=== PATIENT | male | born 1985 | race Caucasian/White ===

== ENCOUNTER → 2019-04-08 | Outpatient (REF) | payer BC ==
[2019-04-08 14:37] LABS: APPEARANCE, URINE CLEAR (CLEAR); BACTERIA, URINE AUTO NEGATIVE (NEGATIVE); BILIRUBIN, URINE AUTO NEGATIVE (NEGATIVE); BLOOD, URINE BLOOD NEGATIVE (NEGATIVE); COLOR, URINE YELLOW (YELLOW); GLUCOSE, URINE (UA) AUTO NEGATIVE (NEGATIVE); KETONE, URINE AUTO NEGATIVE (NEGATIVE); LEUKOCYTE ESTERASE, URINE AUTO NEGATIVE (NEGATIVE); MUCUS, URINE SMALL (NEGATIVE); NITRITE, URINE AUTO NEGATIVE (NEGATIVE); PROTEIN, URINE AUTO NEGATIVE (NEGATIVE); RBC, URINE AUTO 0 /HPF (0-3); SQUAMOUS EPITHELIAL CELL UR AU 0 /HPF (0-6); UROBILINOGEN, URINE AUTO 0.2 mg/dL (0.0-2.0); WBC, URINE AUTO 0 /HPF (0-3)
[2019-04-08 16:10] LABS: CHLAMYDIA DNA AMPLIFICATION NEGATIVE (NEGATIVE); GC DNA AMPLIFICATION NEGATIVE (NEGATIVE)
== END ==
LOC: M LAB REF 12:36
PROVIDERS: ATTEND Physician Assistant Medical
DX: N50.819 Testicular pain, unspecified (principal)

== ENCOUNTER → 2019-04-08 | Outpatient (CLI) | payer BC ==
--- NOTE | 2019-04-08 13:17 | REP ---
Scrotal sonography: History: Right-sided testicular pain. No trauma. Findings: High-resolution bilateral scrotal sonography shows no evidence of intratesticular mass lesion on either side. Testicular Doppler flow is normal bilaterally. Resistive indices are 0.50 on the right and 0.56 on the left. There is a small right-sided hydrocele. There is a left-sided varicocele. Epididymal structures are unremarkable and symmetric. Impression: Small left-sided varicocele. Small right-sided hydrocele noted incidentally. Otherwise negative scrotal sonography. Normal Doppler flow to both testes. Electronically Signed by Felix Shi MD 04/08/2019 02:24 P
== END ==
LOC: M RAD 11:04
PROVIDERS: ATTEND Physician Assistant Medical
DX: N50.82 Scrotal pain (principal)